=== PATIENT | male | born 1985 | race Caucasian/White ===

== ENCOUNTER 2018-07-08 13:23 | Day surgery (SDC) | payer BC ==
[~2018-07-08] VITALS: Ht 180.3 cm; Wt 70.3 kg
[2018-07-08 14:10] VITALS: Ht 180.3 cm; Wt 70.3 kg
[2018-07-08] MEDS ORDERED: LEVO125T71 PO (14:16)
[2018-07-08 15:42] VITALS: BP 122/75; PULSE 62; RESP 16
[2018-07-08] MEDS ORDERED: MIDAZOLAM 1 MG/ML 2 ML INJ ONE ×2 (16:58)
[2018-07-08] MEDS ORDERED: FENTAnyl 50 MCG/ML VIAL ONE (16:58)
--- NOTE | 2018-07-08 17:00 | HPN ---
Date/Time of Note Date/Time of Note DATE: 07/08/18 TIME: 17:00 Interval H&P Admission Note Pt. seen H&P reviewed: No system changes MAE [place]ST[place] Jul 08, 2018 17:00
[2018-07-08 17:15] VITALS: BP 119/81; RESP 16
== END 2018-07-28 11:47 | disposition home or self-care (01) ==
LOC: GIL 13:23
PROVIDERS: ATTEND Internal Medicine Gastroenterology
DX: K29.50 Unspecified chronic gastritis without bleeding (principal); K44.9 Diaphragmatic hernia without obstruction or gangrene
CPT/HCPCS: 43239; 88305; 88312; J2250; J3010